=== PATIENT | male | born 1985 | race African-American/Black ===

== ENCOUNTER 2016-10-03 01:30 | Emergency (ER) | payer OTHER ==
--- NOTE | ~2016-10-03 | CR63 ---
[facility] A Service of [facility] & [facility] RADIOLOGY TEXT RESULTS PATIENT: SARAH BENJAMIN LOCATION: [facility] : 81 UNIT #: [id number] AGE: [address]: Ari Ceja MD SEX: M ORDER DR: [id number] [facility] [address] [place], [place] [address] [id number] E MR#: [id number] Acc #: [id number] NAME: SARAH BENJAMIN : 1985 SEX: M STUDY DATE/TIME: 10/03/2016 1:21 UNIT: [facility] ROOM: STUDY DESCRIPTION: CR Chest 2 View Attending Physician: Ari Ceja Ordering Physician: Ed Doctor [id number] [facility] Primary Care Physician: [facility] MEDICAL IMAGING REPORT This report is preliminary unless electronic signature is present EXAM PA and lateral views of the chest COMPARISON August 20, 2016, March 30, 2016, February 02, 2016. INDICATIONS 31-year-old male with left-sided chest pain for 3 hours. FINDINGS There is stable mild elevation of the right hemidiaphragm. Cardiomediastinal silhouette is normal. No evidence of pneumothorax or pleural effusion. Stable appearance of the bronchovascular structures. No acute airspace disease. IMPRESSION No acute radiographic abnormality. Dictated by... Ceferino Gonzales M.D. THIS IS AN ELECTRONICALLY VERIFIED REPORT Ceferino Gonzales M.D. at 10/05/2016 8:36 PM Elise TD: 10/03/2016 06:34 JOB #: [id number] MEDICAL IMAGING REPORT COPY
[~2016-10-03 01:30] MED LIST: BACTRIM DS TABL1 TA1 PO; KEFLEX500 MG PO; TRAMADOL HCL50 M1 PO
[2016-10-03 01:50] LABS: URINE SOURCE CLEAN CATCH
[2016-10-03 01:57] LABS: URINE APPEARANCE CLEAR; URINE BILIRUBIN NEG (NEG); URINE BLOOD NEG (NEG); URINE COLOR YELLOW; URINE GLUCOSE NEG (NEG); URINE KETONE NEG (NEG); URINE LEUKOCYTE ESTERASE NEG (NEG); URINE NITRATE NEG (NEG); URINE PROTEIN NEG (NEG); URINE SPECIFIC GRAVITY 1.028 (1.003-1.035)
[2016-10-03 02:07] LABS: CULTURE INDICATED? NO
== END 2016-10-03 03:36 | disposition home or self-care (01) ==
LOC: CED 01:30
PROVIDERS: Emergency Medicine
DX: S29.012A Strain of muscle and tendon of back wall of thorax, initial encounter (principal); S39.012A Strain of muscle, fascia and tendon of lower back, initial encounter; I10 Essential (primary) hypertension; E11.9 Type 2 diabetes mellitus without complications; X58.XXXA Exposure to other specified factors, initial encounter
CPT/HCPCS: 71020; 81003; 99283